=== PATIENT | female | born 1975 | race Caucasian/White ===

== ENCOUNTER 2019-05-18 23:41 | Emergency (ER) | payer MEDICAID ==
[~2019-05-18] VITALS: Ht 162.6 cm; Wt 73.0 kg
[2019-05-19 01:52] LABS: BASOPHILS % 0.6 % (0.0-2.0); EOSINOPHILS % 1.2 % (0.0-5.0); HEMATOCRIT. 32.6 % (36.0-48.0); HEMOGLOBIN. 11.2 g/dL (12.0-16.0); LYMPHOCYTES % 37.1 % (20.0-50.0); MEAN CORPUSCULAR HEMOGLOBIN 30.7 pg (28.0-32.0); MEAN CORPUSCULAR VOLUME 89.7 fL (81.0-99.0); MONOCYTES % 8.2 % (2.0-8.0); NEUTROPHILS % 52.9 % (40.0-76.0); PLATELET 282 x1000/uL (130-400); RED BLOOD CELL COUNT 3.64 mill/uL (4.2-5.4); RED CELL DISTRIBUTION WIDTH 13.3 % (11.6-14.6)
[2019-05-19 01:55] LABS: CHLORIDE 105 mEq/L (98-107)
[2019-05-19 01:59] LABS: ETHANOL BLOOD < 10 mg/dL
[2019-05-19 02:04] LABS: PHENOBARBITAL < 2.1 ug/mL (15.0-40.0)
[2019-05-19 02:21] LABS: CARBAMAZEPINE < 0.5 ug/mL (4-12); VALPROIC ACID < 3.0 ug/mL (50-100)
[2019-05-19] MEDS ORDERED: LEVETIRACETAM 500MG/5ML CUP PO ONE (05:30)
[2019-05-19 06:00] VITALS: BP 124/72
[2019-05-19] MEDS ORDERED: LEVETIRACETAM 500MG TABLET PO ONE (06:42)
== END 2019-05-19 06:00 | disposition home or self-care (01) ==
LOC: ER 23:41
DX: G40.909 Epilepsy, unspecified, not intractable, without status epilepticus (principal)
CPT/HCPCS: 36415; 80156; 80165; 80184; 80185; 80320; 81025; 99283; G0480